=== PATIENT | female | born 1940 | race Caucasian/White ===

== ENCOUNTER 2021-07-15 13:03 | Emergency (ER) | payer OTHER ==
[~2021-07-15] VITALS: Ht 170.2 cm; Wt 76.2 kg
--- NOTE | ~2021-07-15 | EMS ---
[place] [address] EMS Patient Care Report Name: EMANUEL MEANS Room #: REG LEFTY Collins#: [id number] Admission: 07/15/21 Attend Phys: Discharge: Date of : 36 Report #: [id number] THIS REPORT FOR: //name// Report Transmitted: 07/15/2021 15:05 EMS Care Summary [place], [place]/[facility] Incident [id number] @ 07/15/2021 12:24 Incident [address] [place] [address] 14 Patient EMANUEL MEANS Female, 81 Years 1940 Patient Address [address] [place] [address] Patient History Chronic Obstructive Pulmonary Disease (COPD),Kidney/Renal Failure, Patient Allergies Albuterol, Chief Complaint GENERALIZED WEAKNESS Disposition Transported No Lights/[place] Dispatch Reason Breathing Problem Transported To [facility] Narrative M36 DISPATCHED EMERGENT TO [address] [place] [address] FOR A SICK. UPON ARRIVAL PT WAS SEATED IN HER ROOM STATING THAT SHE TESTED COVID POSITIVE A WEEK AGO. PT STATED SHE JUST WAS FEELING GENERALLY UNWELL AND JUST WANTED TO GO TO THE HOSPITAL TO GET LABS DONE. PT STOOD WITH ASSISTANCE AND WAS HELPED OVER TO THE STRETCHER. SEAT BELTS WERE APPLIED AND ARM RAILS WERE UP AND [place] [address] EMS Patient Care Report Name: EMANUEL MEANS Room #: REG [facility].#: [id number] Admission: 07/15/21 Attend Phys: Discharge: Date of : 36 Report #: [id number] WAS UNCHANGED DURING TRANSPORT. UPON ARRIVAL TO [facility] PT WAS MOVED TO THE ER BED USING THE SHEET PULL METHOD. PT BELONGINGS AND CARE WERE TRANSFERRED TO RN. Initial Vitals @12:41P: 90,R: 15,BP: 138/90,Pain: 0/10,GCS: 15,SpO2: 94,Revised Trauma: 12, @12:44P: 91,R: 15,BP: 146/81,Pain: 0/10,GCS: 15,SpO2: 93,Revised Trauma: 12, Assessments @12:47MENTAL:Time Oriented,Person Oriented,Event Oriented,Place Oriented,SKIN:HEENT:Head/Face: No Abnormalities,Neck/Airway: No Abnormalities,LUNG SOUNDS:ABDOMEN:PELVIS//GI:EXTREMITIES:Left Arm: No Abnormalities,Right Arm: No Abnormalities,Left Leg: No Abnormalities,Right Leg: No Abnormalities,PULSE:NEURO:No Abnormalities,@12:48 Impression Generalized Weakness Procedures @12:35 BLS Assessment Response: Unchanged @12:35 Stretcher Response: Unchanged Timeline 12:23,Call Received 12:23,Dispatch Notified 12:24,Dispatched 12:25,En Route 12:31,On Scene 12:35,At Patient 12:35,BLS Assessment,Response: Unchanged 12:35,Stretcher,Response: Unchanged 12:41,BP: 138/90 M,PULSE: 90,RR: 15 R,SPO2: 94 Ox,ETCO2: ,BG: ,PAIN: 0,GCS: 15, 12:44,BP: 146/81 M,PULSE: 91,RR: 15 R,SPO2: 93 Ox,ETCO2: ,BG: ,PAIN: 0,GCS: 15, 12:47,Depart Scene 13:06,At Destination 13:14,Call Closed Disclaimer [email or web address] Copyright 2021 [employer] This EMS Care Summary contains data elements from the applicable legal record (which may be displayed differently). It is designed to provide pertinent information for the following purposes: continuity of care, clinical quality, and state data reporting. The complete legal record is available to ED staff and administrators of the receiving hospital in [employer]'s Patient Tracker. All data is provided "as is."
[2021-07-15 14:18] LABS: CALCIUM 8.2 mg/dL (8.5-10.1); CREATININE 1.5 mg/dL (0.6-1.0); POTASSIUM 4.3 mmol/L (3.5-5.1)
[2021-07-15 14:26] LABS: ALBUMIN 3.4 g/dL (3.4-5.0); TOTAL BILIRUBIN 0.5 mg/dL (0.2-1.0); TOTAL PROTEIN 7.6 g/dL (6.4-8.2)
[2021-07-15 15:02] LABS: ABSOLUTE NEUTROPHILS 4.4 thou/uL (1.4-8.2); BASOPHILS 1.1 % (0.0-2.0); EOSINOPHILS 0.7 % (0.0-3.0); HEMATOCRIT 30.5 % (37.0-47.0); HEMOGLOBIN 9.9 gm/dL (12.0-15.0); LYMPHOCYTES 24.6 % (24.0-44.0); MCH 31.7 pg (26.0-34.0); MCHC 32.6 g/dL (28.0-37.0); MCV 97.4 fL (80.0-100.0); MONOCYTES 13.5 % (1.0-8.0); PLATELET COUNT 159 thou/uL (150-400); POLYS 60.1 % (36.0-66.0); RBC 3.13 mil/uL (4.20-5.00); RDW 16.9 % (10.5-14.5); WBC 7.2 thou/uL (4.0-11.0)
[2021-07-15 15:35] VITALS: BP 133/66
[2021-07-15] MEDS ORDERED: AZITHROMYCIN 2250 MG PO (15:57)
== END 2021-07-15 16:59 | disposition home or self-care (01) ==
LOC: ER 13:03
PROVIDERS: Physician Assistant
DX: U07.1 COVID-19 (principal); R53.1 Weakness; I13.0 Hypertensive heart and chronic kidney disease with heart failure and stage 1 through stage 4 chronic kidney disease, or unspecified chronic kidney disease; N18.9 Chronic kidney disease, unspecified; I50.9 Heart failure, unspecified; J44.9 Chronic obstructive pulmonary disease, unspecified; Z88.8 Allergy status to other drugs, medicaments and biological substances